=== PATIENT | female | born 1960 | race Caucasian/White ===

== ENCOUNTER 2016-12-12 19:07 | Emergency (ER) | payer MEDICAID ==
[~2016-12-12] VITALS: Ht 167.6 cm; Wt 63.5 kg
[2016-12-12] MEDS ORDERED: GABAPENTIN800 MG ORAL (19:44)
[2016-12-12 20:00] VITALS: BP 135/83
--- NOTE | 2016-12-12 20:02 | Emergency Room Report ---
History of Present Illness General Chief Complaint: Skin Rash/Abscess Source: Patient Present Illness HPI The patient is a 56-year-old female presenting for a blister of the right finger which she noticed 3 days prior. It has been getting bigger. She noticed a clear to white discharge from it 2 days prior. Pain is a 8/10 dull ache and does not radiate. Pain worse with touch. She denies any known injury that may have caused this. She denies other symptoms including N, V, F, chills, numbness /tingling Allergies: Coded Allergies: No Known Allergies (Unverified , 12/12/16) Patient History Past Medical History: see triage record Pertinent Family History: none Reviewed Nursing Documentation: PMH: Agreed, PSxH: Agreed Nursing Documentation-PMH Hx Neurological Problems: Yes - NEUROPATHY Review of Systems All Other Systems: negative except mentioned in HPI Physical Exam Vital Signs Date Time Temp Pulse Resp B/P Pulse Ox O2 Delivery O2 Flow Rate FiO2 12/12/16 19:39 98.1 87 16 135/83 99 Room Air Sp02 EP Interpretation: reviewed, normal General Appearance: no apparent distress, alert, GCS 15, non-toxic Head: normocephalic, atraumatic Eyes: bilateral eye PERRL, bilateral eye normal inspection ENT: hearing grossly normal, normal pharynx, no angioedema, normal voice Musculoskeletal: normal range of motion, swelling - R index finger lateral region proximal to DIPJ, tender Neurologic: alert, oriented x3, responsive, motor strength/tone normal, sensory intact, speech normal Psychiatric: judgement/insight normal, memory normal, mood/affect normal, no suicidal/homicidal ideation Skin: other - fluctuant white lesion of R index finger proximal to DIPJ Lymphatic: no adenopathy Procedures Incision and Drainage Incision and Drainage : Consent: Verbal Site: R index finger Blade Size: 11 I & D Procedure: betadine prep, sterile drapes applied, sterile dressing applied Wound Location: upper extremity Wound's Depth, Shape: superficial Wound Length (cm): 3 Wound Explored: contaminated Irrigated w/ Saline (ccs): 100 Anesthesia: 1% Lidocaine Volume Anesthetic (ccs): 4 Splint Applied?: No Sling Applied?: No Patient Tolerated: Well Complications: None Medical Decision Making PA Attestation Dr. Long is my supervising physician. Patient management was discussed with my supervising physician Diagnostic Impression: Primary Impression: Abscess ER Course The patient is a 56-year-old female presenting for a blister of the right finger Differential diagnoses considered but not limited to: abscess, cellulitis, insect bite PE: vitals WNL. NAD There is a 3cm fluctuant white lesion with purulent material evident deep to the skin. TTP. R index finger proximal to DIPJ Betadine prep was used to clean the skin and surrounding area. One percent lidocaine without epinephrine was used for digital block The skin was removed with #11 blade. Once the incision was made, purulent material was expressed. Irrigated with NS and betadine. The wound was then cleaned and sterile dressing applied with bacitracin. Patient is discharged home with a prescription for Motrin and antibiotics. ER precautions are given Last Vital Signs Date Time Temp Pulse Resp B/P Pulse Ox O2 Delivery O2 Flow Rate FiO2 12/12/16 19:39 98.1 87 16 135/83 99 Room Air Status: improved Disposition: HOME, SELF-CARE Condition: Improved Scripts Bacitracin (Bacitracin) 28.4 Gm Oint...g. 1 APPLIC TOPIC THREE TIMES A DAY, #28 GM Prov: TERZIAN,CLAUDIO P.A. 12/12/16 Trimethoprim/Sulfamethoxazole 160/800* (BACTRIM DS TABLET*) 1 Each Tablet 1 TAB ORAL TWICE A DAY, #14 TAB Prov: TERZIAN,CLAUDIO P.A. 12/12/16 Cephalexin* (KEFLEX*) 500 Mg Capsule 500 MG ORAL EVERY 12 HOURS, #14 CAP 0 Refills Prov: TERZIAN,CLAUDIO P.A. 12/12/16 Ibuprofen* (MOTRIN*) 600 Mg Tablet 600 MG ORAL Q8H Y for For Pain, #30 TAB 0 Refills Prov: TERZIAN,CLAUDIO P.A. 12/12/16 TERZIAN,CLAUDIO P.A. December 12, 2016 20:02
[2016-12-12] MEDS ORDERED: Bacitracin Oint UD TOPIC ONE (20:15)
[2016-12-12] MEDS ORDERED: Lidocaine 1% MPF 10mg/ml 5ml INJ ONE (20:15)
[2016-12-12] MEDS ORDERED: IBUPROFEN600 MG ORAL (20:51)
[2016-12-12] MEDS ORDERED: CEPHALEXIN500 MG ORAL (20:51)
[2016-12-12] MEDS ORDERED: BACITRACIN15 GM TOPIC (20:51)
[2016-12-12] MEDS ORDERED: BACTRIM DS TAB1 EAC1 ORAL (20:51)
[2016-12-12 20:55] VITALS: BP 135/83
== END 2016-12-12 20:55 | disposition home or self-care (01) ==
LOC: EMR 20:10
DX: L02.511 Cutaneous abscess of right hand (principal)
CPT/HCPCS: 10060; 96374